=== PATIENT | female | born 1960 | race African-American/Black ===

== ENCOUNTER → 2017-01-07 | Outpatient (CLI) | payer OTHER | LOC: WI 11:05 | PROVIDERS: ATTEND Internal Medicine | DX: Z12.31 Encounter for screening mammogram for malignant neoplasm of breast (principal) | CPT/HCPCS: 77067; G0202 ==

== ENCOUNTER → 2017-05-07 | Outpatient (CLI) | payer OTHER ==
--- NOTE | 2017-05-07 16:08 | RADIOLOGY REPORT (SQ) ---
EXAM DESCRIPTION: U/S RETROPERITON (RENAL/AORTA) COMPLETED DATE/TIME: 05/07/2017 3:26 pm REASON FOR STUDY: CYSTIC KIDNEY DISEASE, UNSPECIFIED R10.11 RIGHT UPPER QUADRANT PAIN Q61.9 CYSTIC KIDNEY DISEASE, UNSPECIFIED COMPARISON: CT abdomen pelvis 01/31/2016 Bilateral renal ultrasound 09/11/2016 TECHNIQUE: Dynamic and static grayscale images acquired of the kidneys and bladder and recorded on P ACS. Additional selected color Doppler and spectral images recorded. LIMITATIONS: Obese patient, limited visualization FINDINGS: RIGHT KIDNEY: Right kidney is 12.3 cm in length. The upper pole 2.5 cm cyst identified on CT 01/31/2016 is difficult to visualize today, due to bowel gas and body habitus. No gross hydronephr osis. Normal cortical thickness. LEFT KIDNEY: Left kidney is 12.2 cm in length. No gross hydronephrosis. Normal cortical thickness. BLADDER: Unremarkable OTHER FINDINGS: No other significant finding. IMPRESSION: Very limited study due to patient body habitus. Right upper pole renal cortical cyst se en on CT exam 01/31/2016 is not identified. No right or left hydronephrosis. Normal cortical thickness. TECHNICAL DOCUMENTATION: JOB ID: [id number] [employer] All Rights Reserved
--- NOTE | 2017-05-07 16:19 | RADIOLOGY REPORT (SQ) ---
EXAM DESCRIPTION: U/S ABDOMEN LIMITED W/O DOP COMPLETED DATE/TIME: 05/07/2017 3:26 pm REASON FOR STUDY: RUQ PAIN R10.11 RIGHT UPPER QUADRANT PAIN Q61.9 CYSTIC KIDNEY DISEASE, UNSPECIFI ED COMPARISON: CT abdomen pelvis 01/31/2016 TECHNIQUE: Dynamic and static grayscale images acquired of the abdomen and recorded on PACS. Additio nal selected color Doppler and spectral images recorded. LIMITATIONS: Obese patient FINDINGS: PANCREAS: Midline pancreas unremarkable LIVER: Echogenic liver from diffuse fatty infiltration LIVER VASCULATURE: Normal directional flow of the main portal vein and hepatic veins. GALLBLADDER: No stones. Normal wall thickness. No pericholecystic fluid. ULTRASOUND-DETECTED DAVILA'S SIGN: Negative. INTRAHEPATIC DUCTS AND COMMON DUCT: CBD and intrahepatic ducts normal caliber. No filling defects. INFERIOR VENA CAVA: Not well seen AORTA: Not well seen RIGHT KIDNEY: No hydronephrosis. 13 cm in length. PERITONEAL AND RIGHT PLEURAL SPACE: No ascites or effusions. OTHER: No other significant findings. IMPRESSION: Very limited study. No gallstones, gallbladder wall thickening or pericholecystic fluid . Fatty liver TECHNICAL DOCUMENTATION: JOB ID: [id number] [employer]- All Rights Reserved
== END ==
LOC: RAD 14:08
PROVIDERS: ATTEND Internal Medicine
DX: Q61.9 Cystic kidney disease, unspecified (principal)
CPT/HCPCS: 76705; 76770

== ENCOUNTER → 2017-05-07 | Outpatient (CLI) | payer OTHER ==
--- NOTE | 2017-05-07 11:19 | RADIOLOGY REPORT (SQ) ---
EXAM DESCRIPTION: HIP RIGHT AP/LATERAL COMPLETED DATE/TIME: 05/07/2017 10:53 am REASON FOR STUDY: PAIN IN RIGHT HIP M25.551 PAIN IN RIGHT HIP COMPARISON: CT abdomen pelvis 01/31/2016 NUMBER OF VIEWS: Two views. TECHNIQUE: AP pelvis and additional frog-leg view of the right hip. LIMITATIONS: None. FINDINGS: MINERALIZATION: Normal. RIGHT HIP: No fracture or dislocation. No worrisome bone lesions. LEFT HIP: No fracture or dislocation. No worrisome bone lesions. PUBIS AND ISCHIUM: No fracture. PELVIS: No fracture. SACRUM: No fracture or dislocation. No worrisome bone lesions. LOWER LUMBAR SPINE: No fracture or dislocation. No worrisome bone lesions. No significant disc disea se. SOFT TISSUES: Surgical clips right lower quadrant. OTHER: No other significant finding. IMPRESSION: NEGATIVE STUDY OF THE RIGHT HIP. NO RADIOGRAPHIC EVIDENCE OF ACUTE INJURY. TECHNICAL DOCUMENTATION: JOB ID: [id number] [employer]- All Rights Reserved
== END ==
LOC: OD 10:06
PROVIDERS: ATTEND Internal Medicine
DX: M25.551 Pain in right hip (principal)

== ENCOUNTER → 2017-10-23 | Outpatient (CLI) | payer OTHER ==
--- NOTE | 2017-10-23 16:57 | RADIOLOGY REPORT (SQ) ---
EXAM DESCRIPTION: ARTERIAL LOWER EXTREM UNILAT COMPLETED DATE/TIME: 10/23/2017 3:59 pm REASON FOR STUDY: LLE PAIN M79.605 PAIN IN LEFT LEG COMPARISON: None. TECHNIQUE: Dynamic and static adrian scale and color images acquired of the left lower extremity arter ies. Additional selected spectral images recorded. ABIs recorded. LIMITATIONS: None. FINDINGS: RIGHT LEG: ABIS: Normal, over 1.0. Triphasic dorsalis pedis artery on spectral waveforms LEFT LEG: ABIS: Normal, over 1.0. INFLOW ARTERIES: Normal, no obstruction evident. FEMORAL ARTERIES:Multiphasic waveforms. Normal, no velocity elevation to suggest focal stenosis. Norm al color Doppler evaluation. No aneurysm. POPLITEAL ARTERY:Multiphasic waveforms. Normal, no velocity elevation to suggest focal stenosis. Norm al color Doppler evaluation. No aneurysm. PATENT TIBIOPERONEAL TRUNK AND 3 VESSEL RUNOFF: Yes, normal vessels. TBI: Not performed. OTHER: No other significant finding. IMPRESSION: NORMAL LEFT LOWER EXTREMITY ARTERIAL DOPPLER WITH ABIs. COMMENT: [facility] NORMAL: Greater than 1.0 MINIMAL DISEASE: 0.9 to 1.0 CLAUDICATION: 0.5 to 0.9 SEVERE ARTERIAL DISEASE: Less than 0.5 [facility] NORMAL: Greater than 1.0 (1.2 If Heavy Calcifications) NORMAL TO MILD ISCHEMIA: 0.8 to 1.0 MODERATE ISCHEMIA: 0.4 to 0.8 SEVERE ISCHEMIA: Less than 0.4 TECHNICAL DOCUMENTATION: JOB ID: [id number] [employer]- All Rights Reserved
== END ==
LOC: SP 15:02
PROVIDERS: ATTEND Internal Medicine
DX: M79.605 Pain in left leg (principal)
CPT/HCPCS: 93926

== ENCOUNTER → 2018-01-08 | Outpatient (CLI) | payer OTHER ==
--- NOTE | 2018-01-08 15:33 | WOMENS IMAGING REPORT ---
EXAM DESCRIPTION: BILAT SCREENING MAMMO W/CAD COMPLETED DATE/TIME: 01/08/2018 9:27 am REASON FOR STUDY: SCREENING MAMMO Z12.31 ENCNTR SCREEN MAMMOGRAM FOR MALIGNANT NEOPLASM OF CLAIR COMPARISON: 2013 to 2016 TECHNIQUE: Standard craniocaudal and mediolateral oblique views of each breast recorded using digita l acquisition. LIMITATIONS: None. FINDINGS: Findings present which are benign by mammographic criteria. No suspicious masses, calcifi cations or architectural distortion. Pertinent benign findings: Calcifications. Read with the assistance of CAD. .[facility] - R2 Cenova Version 1.3 .[facility] Imaging - R2 Cenova Version 1.3 .[facility] Imaging - R2 Cenova Version 2.4 .[facility] [place] [place] - R2 Cenova Version 2.4 .[facility] - R2 Transformation Consultant Version 9.2 Benign mammographic findings may include one or more of the following: Smooth masses, popcorn/rim/co arse calcifications, asymmetries, post-procedure changes, and lesions with long-standing stability. IMPRESSION: BENIGN MAMMOGRAPHIC FINDINGS. BIRADS 2 BREAST DENSITY: b. There are scattered areas of fibroglandular density. BIRAD: 2 BENIGN FINDING(S) RECOMMENDATION: ROUTINE SCREENING COMMENT: The patient has been notified of the results by letter per SA requirements. Additional no tification policies are in place for contacting patient with suspicious or incomplete findings. Quality ID #225: The [employer] recommends an annual screening mammogram for women aged 40 years or over. This facility utilizes a reminder system to ensure that all patients receive reminder letters, and/or direct phone calls for appointments. This includes reminders for routine scr eening mammograms, diagnostic mammograms, or other Breast Imaging Interventions when appropriate. Th is patient will be placed in the appropriate reminder system. The [employer] (ACR) has developed recommendations for screening MRI of the breast s in certain patient populations, to be used in conjunction with mammography. Breast MRI surveillanc e may be appropriate for women with more than 20% lifetime risk of developing breast cancer as deter mined by genetic testing, significant family history of the disease, or history of mantle radiation f or Hodgkins Disease. ACR Practice Guidelines 2008. TECHNICAL DOCUMENTATION: FINDING NUMBER: (1) ASSESSMENT: (1) JOB ID: [id number] [employer]- All Rights Reserved Reading location - IP/workstation name: [email or web address]
== END ==
LOC: WI 09:04
PROVIDERS: ATTEND Internal Medicine
DX: Z12.31 Encounter for screening mammogram for malignant neoplasm of breast (principal)
CPT/HCPCS: 77067

== ENCOUNTER → 2018-01-16 | Outpatient (CLI) | payer OTHER ==
[2018-01-16 18:42] LABS: ABSOLUTE BASOPHILS # (AUTO) 0.1 10^3/uL (0.0-0.2); ABSOLUTE EOSINOPHILS # (AUTO) 0.3 10^3/uL (0.0-0.6); ABSOLUTE LYMPHOCYTES (AUTO) 3.8 10^3/uL (0.5-4.7); ABSOLUTE NEUT (AUTO) 6.8 10^3/uL (1.7-8.2); BASOPHILS % (AUTO) 0.5 % (0-2); EOSINOPHILS % (AUTO) 2.3 % (0-6); HEMATOCRIT 42.8 % (36.0-47.0); HEMOGLOBIN 13.6 g/dL (12.0-15.5); LYMPHOCYTES % (AUTO) 31.4 % (13-45); MEAN CORPUSCULAR HEMOGLOBIN 22.6 pg (27.0-33.4); MEAN CORPUSCULAR HGB CONC 31.9 g/dL (32.0-36.0); MEAN CORPUSCULAR VOLUME 71 fl (80-97); MONOCYTES % (AUTO) 8.7 % (3-13); PLATELET COUNT 289 10^3/uL (150-450); RED BLOOD COUNT 6.05 10^6/uL (3.72-5.28); RED CELL DISTRIBUTION WIDTH 16.4 % (11.5-14.0); SEGMENTED NEUTROPHILS % (AUTO) 57.1 % (42-78); TOTAL CELLS COUNTED % (AUTO) 100 %
--- NOTE | 2018-01-16 18:42 | RADIOLOGY REPORT (SQ) ---
EXAM DESCRIPTION: CHEST 2 VIEWS COMPLETED DATE/TIME: 01/16/2018 6:08 pm REASON FOR STUDY: Encounter for preprocedural examinations,Morbid (severe) obesity due to exc COMPARISON: 11/02/2010 EXAM PARAMETERS: NUMBER OF VIEWS: two views TECHNIQUE: Digital Frontal and Lateral radiographic views of the chest acquired. RADIATION DOSE: NA LIMITATIONS: none FINDINGS: LUNGS AND PLEURA: No opacities, masses or pneumothorax. No pleural effusion. MEDIASTINUM AND HILAR STRUCTURES: No masses or contour abnormalities. HEART AND VASCULAR STRUCTURES: Heart normal size. No evidence for failure. BONES: No acute findings. HARDWARE: None in the chest. OTHER: No other significant finding. IMPRESSION: NO ACUTE RADIOGRAPHIC FINDING IN THE CHEST. TECHNICAL DOCUMENTATION: JOB ID: [id number] [employer]- All Rights Reserved Reading location - IP/workstation name: [email or web address]
[2018-01-16 19:15] LABS: ALANINE AMINOTRANSFERASE 35 U/L (9-52); ALBUMIN 4.3 g/dL (3.5-5.0); ALKALINE PHOSPHATASE 95 U/L (38-126); ANION GAP 14 (5-19); ASPARTATE AMINO TRANSFERASE 17 U/L (14-36); BILIRUBIN,DIRECT 0.4 mg/dL (0.0-0.4); BILIRUBIN,TOTAL 0.7 mg/dL (0.2-1.3); BLOOD UREA NITROGEN 15 mg/dL (7-20); CALCIUM 10.8 mg/dL (8.4-10.2); CARBON DIOXIDE 29 mmol/L (22-30); CHLORIDE 101 mmol/L (98-107); GLUCOSE 108 mg/dL (75-110); SODIUM 144.1 mmol/L (137-145); TOTAL PROTEIN 7.8 g/dL (6.3-8.2)
--- NOTE | 2018-01-16 22:56 | EKG REPORT ---
SEVERITY:- ABNORMAL ECG - SINUS RHYTHM PROBABLE INFERIOR INFARCT, AGE INDETERMINATE CONSIDER ANTERIOR INFARCT : Confirmed by: Sonal Baum 16-Jan-2018 22:55:18
== END ==
LOC: OD 17:22
PROVIDERS: ATTEND Surgery
DX: Z01.810 Encounter for preprocedural cardiovascular examination (principal); Z01.811 Encounter for preprocedural respiratory examination; Z01.812 Encounter for preprocedural laboratory examination; Z01.818 Encounter for other preprocedural examination; E66.01 Morbid (severe) obesity due to excess calories
CPT/HCPCS: 36415; 71046; 80053; 84443; 85025; 93005; 93010

== ENCOUNTER → 2018-02-19 | Outpatient (CLI) | payer OTHER ==
--- NOTE | 2018-02-19 12:13 | RADIOLOGY REPORT (SQ) ---
EXAM DESCRIPTION: U/S RETROPERITON (RENAL/AORTA) COMPLETED DATE/TIME: 02/19/2018 11:47 am REASON FOR STUDY: CYST ON KIDNEY, ACQUIRED N28.1 CYST OF KIDNEY, ACQUIRED COMPARISON: CT abdomen pelvis 01/31/2016 Abdominal ultrasound 09/01/2016, 05/07/2017 TECHNIQUE: Dynamic and static grayscale images acquired of the kidneys and bladder and recorded on P ACS. Additional selected color Doppler and spectral images recorded. LIMITATIONS: Morbid obesity FINDINGS: RIGHT KIDNEY: Normal size, 12 cm in length. Grossly normal cortical thickness. No hydron ephrosis. LEFT KIDNEY: Normal size, 11.6 cm in length. Grossly normal cortical thickness. No hydronephrosis. BLADDER: No masses. OTHER FINDINGS: No other significant finding. IMPRESSION: No hydronephrosis. Limited study due to patient body habitus. TECHNICAL DOCUMENTATION: JOB ID: [id number] [employer]- All Rights Reserved Reading location - IP/workstation name: [email or web address]
== END ==
LOC: RAD 11:01
PROVIDERS: ATTEND Internal Medicine
DX: N28.1 Cyst of kidney, acquired (principal)
CPT/HCPCS: 76770

== ENCOUNTER → 2018-04-01 | Outpatient (CLI) | payer OTHER ==
[~2018-04-01] MED LIST: REGADENOSON INJ 0.4 MG/5 ML DISP.SYRIN IV ONE
--- NOTE | 2018-04-01 21:40 | RADIOLOGY REPORT ---
STRESS TEST REPORT [id number] ROOM#: DATE OF SERVICE: 04/01/2018 AGE: 57Y ORDER#: [id number] REFERRING MD: TOYA AMEZCUA M.D. INDICATION: Preoperative sleeve surgery cardiac clearance workup. PROCEDURE PERFORMED: REST/STRESS SINGLE ISOTOPE CARDIOLITE SPECT IMAGING WITH IV LEXISCAN STRESS AND GATED SPECT IMAGING CLINICAL HISTORY: This 57-year-old female with no known coronary artery disease but has cardiac risk factors of obesity, hypertension, diabetes, was found to have an abnormal EKG on preop workup, never had any chest pain. REPORT: The patient received IV Lexiscan 0.4 mg infused over 10 seconds. The resting heart rate was 91 BPM and increased to 103 BPM at the end of infusion. The resting blood pressure was 146/95 and increased to 175/85 at the end of infusion. The patient had symptoms of feeling rushed in her chest, but no specific chest pains. The resting 12-lead EKG showed sinus rhythm at 93 BPM, old anterior DC, rule out poor precordial lead placement. At the end of infusion, sinus tachycardia was seen, there were no ST changes seen. Myocardial perfusion imaging was performed at rest 60 minutes following injection of 16.08 mCi of Cardiolite. There was significant breast attenuation, unable to improve images. Ten seconds after IV Lexiscan injection, the patient was injected with 46 mCi of Cardiolite and flushed. Gated post stress tomographic imaging was performed 60 minutes after stress. FINDINGS: The overall quality of the study is poor. There was severe breast attenuation obscuring the better half of the left ventricle on all views, despite attenuation correction software used, minimal improvement. The left ventricular cavity is noted to be normal in size in both the rest and stress studies. There is no evidence of abnormal transient ischemic dilatation of left ventricle. The TID ratio was 1.11. The SPECT images showed a small area of moderate severity reversible ischemia in the apex and in the apical inferior wall. There was no fixed perfusion defect. The gated study showed normal motion contraction in the apex and apical inferior wall. The left ventricular ejection fraction was calculated to be 55%. IMPRESSION: Myocardial perfusion imaging is abnormal. There is a small area of moderate severity reversible ischemia in the apex and apical inferior wall. Overall left ventricular systolic function was normal at 55% and no motion contraction abnormalities were seen in the apex and in the apical inferior wall, this is consistent with ischemia in a distal LAD distribution. No prior test for comparison. INTERPRETING PHYSICIAN: JEFE OROZCO M.D. /: [id number] TT: 2103 ID: [id number] /: [id number] TD: [id number] JOB: [id number] cc:Good GRIMALDO M.D. > [facility]
== END ==
LOC: RAD 06:18
PROVIDERS: ATTEND Internal Medicine
DX: R94.31 Abnormal electrocardiogram [ECG] [EKG] (principal)
CPT/HCPCS: 93017; 78452; A9500; J2785; Q9969

== ENCOUNTER 2018-04-30 09:56 | Day surgery (SDC) | payer OTHER ==
[~2018-04-30 09:56] MED LIST changes: +ASPIRIN 325 MG TABLET PO PRN; +DIAZEPAM 5 MG TABLET PO PRN; +DIPHENHYDRAMINE HCL 25 MG CAPSULE PO PRN; +NORMAL SALINE 1000 ML 1,000 ML IV PRN; -REGADENOSON INJ 0.4 MG/5 ML DISP.SYRIN IV ONE; +VERAPAMIL HCL 5 MG, LIDOCAINE HCL/PF 4 ML, NORMAL SALINE 12 ML, NITROGLYCERIN/D5W 0.4 M... IV PRN
[2018-04-30] MEDS ORDERED: HEPARIN SODIUM,PORCINE/NS/PF 2,000 UNIT/1,000 ML RTUINJ IV ONE (11:27)
[2018-04-30] MEDS ORDERED: LIDOCAINE 1% INJ-PF (10 MG/ML) 30 ML SDV ONE (11:27)
[2018-04-30] MEDS ORDERED: DIAZEPAM 5 MG TABLET ONE (11:38)
[2018-04-30] MEDS ORDERED: ASPIRIN 325 MG TABLET ONE (11:38)
[2018-04-30] MEDS ORDERED: DIPHENHYDRAMINE HCL 25 MG CAPSULE ONE (11:38)
[2018-04-30] MEDS ORDERED: FENTANYL CITRATE INJ/PF 100 MCG/2 ML AMPUL ONE ×2 (12:12→13:07)
[2018-04-30] MEDS ORDERED: HEPARIN SOD (PORCINE) 5,000 UNIT/ML 1 ML SYRINGE ONE (12:12)
[2018-04-30] MEDS ORDERED: MIDAZOLAM 2 MG/2 ML INJ ONE ×2 (12:12→13:07)
--- NOTE | 2018-04-30 14:31 | Operative Report ---
Operative Report DATE OF SURGERY: 04/30/18 PREOPERATIVE DIAGNOSIS: Abnormal stress test POSTOPERATIVE DIAGNOSIS: Nonobstructive coronary artery disease OPERATION: Left heart catheterization with selective coronary arteriography. SURGEON: CELESTINA ARREOLA ANESTHESIA: Moderate Sedation TISSUE REMOVED OR ALTERED: Not applicable COMPLICATIONS: No apparent complications ESTIMATED BLOOD LOSS: Minimal INTRAOPERATIVE FINDINGS: Nonobstructive coronary artery disease and no aortic stenosis PROCEDURE: Procedure: 57-year-old female with multiple cardiovascular risk factors seen as an outpatient for preoperative evaluation prior to bariatric surgery. A stress test was performed which showed evidence of apical ischemia. She is referred for diagnostic coronary arteriography. Procedures performed: 1. Left heart catheterization. 2. Selective coronary arteriography. 3. Left ventriculography. Wind Commissioning Technician: Celestina Arreola DO Contrast utilized: 80 mL of Optiray 320 Procedure in brief: After informed consent was obtained, the patient was brought to the catheterization lab in stable condition. Bilateral groins and the right wrist were prepped and draped in sterile fashion. The patient was given IV moderate conscious sedation by the cardiac catheterization lab nurse with Versed and fentanyl which was supervised by the procurement director. The following parameters were monitored: Oxygen saturation, heart rate, blood pressure, and response to care. Total physician intra- service time was 36 minutes. After local infiltration of the right wrist with 2% lidocaine, the right radial artery was punctured with a micropuncture needle and a 6 [employer] hydrophilic sheath was inserted into the right radial artery using modified cylinder technique and a micropuncture kit. The sheath was then flushed with a spasmolytic cocktail of nitroglycerin, verapamil, and lidocaine. The patient was given 5000 units of IV heparin. Next, we attempted to cannulate the left brachial artery with a J-wire, but felt significant resistance. Angiography through the right radial artery sheath was performed in the AP projection which showed no evidence of any vessel loop. There is normal bifurcation of the right ulnar and radial arteries at the level of the antecubital fossa. We utilized a Glidewire to help advance the Muddy catheter to the right innominate artery. This was exchanged for the 0.035 inch J-wire to advance the catheter to the aortic root. Left heart catheterization was performed using a 6 [place] tiger diagnostic catheter across the aortic valve in a retrograde fashion. Left ventricular pressure was measured and the catheter was positioned retrograde through the aortic valve and pressure measured in the aortic root. Next, selective coronary arteriography was performed using a 6 [place] tiger catheter is seen in the ostium the right coronary artery. Multiple injections were performed in orthogonal views and the catheter was then positioned into the ostium the left main coronary artery. Multiple injections were performed in orthogonal views of the catheter was removed from the body without difficulty. Findings: Left heart hemodynamics LV 123/4, LVEDP 14 Ao 122/74, mean arterial pressure of 96 mmHg. Coronary arteriography Left main coronary artery: Left main coronary artery is angiographically normal giving rise to the LAD and left circumflex arteries. Left anterior descending artery: The left anterior descending artery courses of the anterior interventricular septum and terminates across the cardiac apex. The proximal LAD has minimal irregularity. The mid left anterior descending artery has a 50% calcific stenosis at the bifurcation of the first diagonal branch artery. The remainder of the left anterior descending artery has minimal irregularity as it approaches the cardiac apex. The first diagonal branch artery is of small caliber and approximately 2 mm in diameter. There is a 30-40% proximal stenosis. Left circumflex artery: The left circumflex artery is a large caliber artery. It has a high takeoff first obtuse marginal branch artery. The circumflex and the obtuse marginal branch artery [place] minimal regularity Right coronary artery: The right coronary artery is the dominant vessel giving rise to the right posterior descending artery. These vessels have minimal regularity. Left ventriculography: Deferred. Patient had a noninvasive assessment of ejection fraction as an outpatient. Right radial artery sheath was removed and hemostasis achieved with the TR band. The patient tolerated the procedure well and there were no apparent complications at the end of the case. Impression: 1. Normal left main coronary artery. 2. 50% mid LAD stenosis. 3. 30-40% proximal first diagonal branch artery stenosis. 4. Minimal irregularity of the left circumflex/obtuse marginal branch artery system. 5. Minimal irregularity of the right coronary artery. 6. No evidence of aortic stenosis. Plan: 1. Continue optimal medical therapy. We will add isosorbide mononitrate to her regimen. 2. If the patient fails outpatient medical therapy, she may be scheduled for fractional flow reserve testing of the LAD to verify the findings on stress test prior to stent implantation. 3. Follow-up with Dr. Dobbins as an outpatient. I appreciate the opportunity to help participate in this patient's cardiovascular care. If you should have any questions for me regarding this patient's cardiac catheterization, please do not hesitate to contact me at the [facility].
--- NOTE | 2018-04-30 14:33 | Discharge Summary ---
Discharge Summary (SDC) - Discharge Final Diagnosis: 1. Nonobstructive coronary artery disease. 2. No evidence of aortic stenosis. Date of Surgery: 04/30/18 Discharge Date: 04/30/18 Condition: Good Referrals: TOYA AMEZCUA MD [Primary Care Provider] - Discharge Diet: Cardiac, Diabetic Discharge Activity: No Driving, No Lifting Over 10 Pounds, No Lifting/Push/ Pulling, No tub bath Home Care Assistance: Provided by Family Report the Following to Your Physician Immediately: Shortness of Breath, Nausea , Increase in Pain, Fever over 101 Degrees, Unusual Bleeding, Redness, Swelling , Warmth
[2018-04-30 16:09] VITALS: BP 136/87
== END 2018-04-30 16:33 | disposition home or self-care (01) ==
LOC: CCL 09:56
PROVIDERS: ATTEND Internal Medicine Cardiovascular Disease
DX: I25.10 Atherosclerotic heart disease of native coronary artery without angina pectoris (principal); I10 Essential (primary) hypertension; R06.00 Dyspnea, unspecified; I99.8 Other disorder of circulatory system; Z79.899 Other long term (current) drug therapy; Z79.4 Long term (current) use of insulin
CPT/HCPCS: 82962; 93458; 76937; J2250; J1644 ×2; J3010; J3490 ×5

== ENCOUNTER → 2018-10-28 | Outpatient (CLI) | payer OTHER ==
--- NOTE | 2018-10-28 12:27 | RADIOLOGY REPORT (SQ) ---
EXAM DESCRIPTION: U/S RETROPERITON (RENAL/AORTA) COMPLETED DATE/TIME: 10/28/2018 10:09 am REASON FOR STUDY: CYST ON KIDNEY N28.1 CYST OF KIDNEY, ACQUIRED COMPARISON: 02/19/2018 TECHNIQUE: Dynamic and static grayscale images acquired of the kidneys and bladder and recorded on P ACS. Additional selected color Doppler and spectral images recorded. LIMITATIONS: None. FINDINGS: RIGHT KIDNEY: Normal size measuring 12.2 cm. Normal echogenicity. No solid or suspicious m asses. There is a 2.9 cm upper pole cyst, similar in size to CT dated 01/31/2016. No hydronephrosis. No calcifications. LEFT KIDNEY: Normal size measuring 12.1 cm. Normal echogenicity. No solid or suspicious masses. No h ydronephrosis. No calcifications. BLADDER: No masses. OTHER FINDINGS: No other significant finding. IMPRESSION: Limited exam secondary to body habitus. No hydronephrosis. 2.9 cm upper pole right renal cyst. TECHNICAL DOCUMENTATION: JOB ID: [id number] [employer]- All Rights Reserved Reading location - IP/workstation name: [email or web address]
== END ==
LOC: RAD 09:21
PROVIDERS: ATTEND Internal Medicine
DX: N28.1 Cyst of kidney, acquired (principal)
CPT/HCPCS: 76770

== ENCOUNTER → 2019-01-12 | Outpatient (CLI) | payer OTHER ==
--- NOTE | 2019-01-12 16:33 | WOMENS IMAGING REPORT ---
EXAM DESCRIPTION: 3D SCREENING MAMMO BILAT COMPLETED DATE/TIME: 01/12/2019 8:57 am REASON FOR STUDY: ROUTINE BILATERAL SCREENING;Z12.31 Z12.31 ENCNTR SCREEN MAMMOGRAM FOR MALIGNANT N EOPLASM OF CLAIR COMPARISON: 01/08/2018 and 01/07/2017. TECHNIQUE: Standard craniocaudal and mediolateral oblique views of each breast recorded using digita l acquisition and breast tomosynthesis. LIMITATIONS: None. FINDINGS: Findings present which are benign by mammographic criteria. No suspicious masses, calcific ations or architectural distortion. Pertinent benign findings: Calcifications in both breasts appear unchanged. Read with the assistance of CAD. .[facility] - R2 Cenova Version 1.3 .[facility] Imaging - R2 Cenova Version 2.1 .[facility] Imaging - R2 Cenova Version 2.4 .[facility] - R2 Cenova Version 2.4 .[facility] - R2 [employer]er Version 9.2 Benign mammographic findings may include one or more of the following: Smooth masses, popcorn/rim/coa rse calcifications, asymmetries, post-procedure changes, and lesions with long-standing stability. IMPRESSION: BENIGN MAMMOGRAPHIC FINDINGS. BIRADS 2 BREAST DENSITY: a. The breasts are almost entirely fatty. BIRAD: 2 BENIGN FINDING(S) RECOMMENDATION: ROUTINE SCREENING COMMENT: The patient has been notified of the results by letter per SA requirements. Additional no tification policies are in place for contacting patient with suspicious or incomplete findings. Quality ID #225: The [employer] recommends an annual screening mammogram for women aged 40 years or over. This facility utilizes a reminder system to ensure that all patients receive reminder letters, and/or direct phone calls for appointments. This includes reminders for routine scr eening mammograms, diagnostic mammograms, or other Breast Imaging Interventions when appropriate. Th is patient will be placed in the appropriate reminder system. The [employer] (ACR) has developed recommendations for screening MRI of the breast s in certain patient populations, to be used in conjunction with mammography. Breast MRI surveillanc e may be appropriate for women with more than 20% lifetime risk of developing breast cancer as deter mined by genetic testing, significant family history of the disease, or history of mantle radiation f or Hodgkins Disease. ACR Practice Guidelines 2008. DBT Technology DBT is a type of tomographic mammography. With conventional mammography, overlapping breast tissue ma y make lesions difficult to detect, even with good compression. DBT uses an x-ray tube that rotates a round the breast, taking images at different angles. These images are then combined to create thin sl ices of the breast that the radiologist can view as a 3D reconstruction. The Slanissue unit can perform full-field digital mammograms (2D imaging); or DBT (3D imaging); or both, in a combination mode that quickly performs both the mammogram and the tomosynthesis scan while the breast is still compressed. PQRS 6045F: Fluoroscopic imaging is not utilized for breast tomosynthesis. TECHNICAL DOCUMENTATION: FINDING NUMBER: (1) ASSESSMENT: (1) JOB ID: [id number] [employer]- All Rights Reserved Reading location - IP/workstation name: [email or web address]
== END ==
LOC: WI 08:21
PROVIDERS: ATTEND Internal Medicine
DX: Z12.31 Encounter for screening mammogram for malignant neoplasm of breast (principal)
CPT/HCPCS: 77063; 77067

== ENCOUNTER → 2019-02-10 | Outpatient (CLI) | payer OTHER ==
--- NOTE | 2019-02-10 12:42 | RADIOLOGY REPORT (SQ) ---
EXAM DESCRIPTION: CTA CHEST COMPLETED DATE/TIME: 02/10/2019 10:54 am REASON FOR STUDY: PLEURISY (R09.1) R09.1 PLEURISY COMPARISON: CT chest 01/03/2015 Chest films 01/16/2018 TECHNIQUE: CT scan of the chest performed using helical scanning technique with dynamic intravenous contrast injection. Images reviewed with lung, soft tissue and bone windows. Reconstructed coronal and sagittal MPR images reviewed. Additional 3 dimensional post-processing performed to develop Maximal Intensity Projection images ([place] P). All images stored on PACS. All CT scanners at this facility use dose modulation, iterative reconstruction, and/or weight based d osing when appropriate to reduce radiation dose to as low as reasonably achievable (ALARA). [facility]: Dose Right [facility]: CareDose [facility]: Dose Right [facility]: Teradose 4D [facility]: Mevvy CONTRAST TYPE AND DOSE: contrast/concentration: Isovue 350.00 mg/ml; Total Contrast Delivered: 79.0 ml; Total Saline Delivered: 67.0 ml Contrast bolus optimized for the pulmonary arteries and thoracic aorta. RENAL FUNCTION: Creatinine 0.6 RADIATION DOSE: CT Rad equipment meets quality standard of care and radiation dose reduction techniq ues were employed. CTDIvol: 9.4 - 15.3 mGy. DLP: 545 mGy-cm. . LIMITATIONS: None. FINDINGS: LUNGS AND PLEURA: No masses, infiltrates, or pneumothorax. No pleural effusions or pleura l calcifications. AORTA AND GREAT VESSELS: No thoracic aortic aneurysm or dissection HEART: No pericardial effusion. No significant coronary artery calcifications. PULMONARY ARTERIES: No emboli visualized in the main pulmonary arteries or the segmental branches. HILAR AND MEDIASTINAL STRUCTURES: No identified masses or abnormal nodes. Small hiatal hernia HARDWARE: None in the chest. UPPER ABDOMEN: Incompletely imaged benign fatty nodule left adrenal gland similar compared to 2018 THYROID AND OTHER SOFT TISSUES: No masses. No adenopathy. BONES: No acute or significant finding. 3D MIPS: Confirm above findings. OTHER: No other significant finding. IMPRESSION: No CT angio evidence of acute pulmonary emboli or thoracic aortic dissection. No acute infiltrates. COMMENT: Quality ID # 436: Final reports with documentation of one or more dose reduction techniques (e.g., Automated exposure control, adjustment of the mA and/or kV according to patient size, use of iterative reconstruction technique) TECHNICAL DOCUMENTATION: JOB ID: [id number] [employer]- All Rights Reserved Reading location - IP/workstation name: [email or web address]
== END ==
LOC: RAD 10:12
PROVIDERS: ATTEND Internal Medicine
DX: R09.1 Pleurisy (principal)
CPT/HCPCS: 71275; 82565

== ENCOUNTER → 2019-12-29 | Outpatient (CLI) | payer OTHER ==
[2019-12-29 10:24] LABS: ANION GAP 7 (5-19); BLOOD UREA NITROGEN 15 mg/dL (7-20); CALCIUM 10.5 mg/dL (8.4-10.2); CARBON DIOXIDE 31 mmol/L (22-30); CHLORIDE 99 mmol/L (98-107); GLUCOSE 210 mg/dL (75-110); POTASSIUM 4.3 mmol/L (3.6-5.0)
== END ==
LOC: OD 09:38
PROVIDERS: ATTEND Family Medicine
DX: E11.41 Type 2 diabetes mellitus with diabetic mononeuropathy (principal)
CPT/HCPCS: 36415; 80048; 83036

== ENCOUNTER → 2020-02-23 | Outpatient (CLI) | payer OTHER ==
--- NOTE | 2020-02-23 09:58 | WOMENS IMAGING REPORT ---
EXAM DESCRIPTION: 3D SCREENING MAMMO BILAT IMAGES COMPLETED DATE/TIME: 02/23/2020 9:29 am REASON FOR STUDY: Z12.31 SCREENING MAMMO Z12.31 ENCNTR SCREEN MAMMOGRAM FOR MALIGNANT NEOPLASM OF B RE COMPARISON: Multiple since 2012 EXAM PARAMETERS: Standard craniocaudal and mediolateral oblique views of each breast recorded using digital acquisition and breast tomosynthesis. Read with the assistance of CAD. .[facility] - [employer] Project Lead Version 9.2 LIMITATIONS: None. FINDINGS: Findings present which are benign by mammographic criteria. No suspicious masses, calcific ations or architectural distortion. Pertinent benign findings: Benign calcifications bilaterally Benign mammographic findings may include one or more of the following: Smooth masses, popcorn/rim/coa rse calcifications, asymmetries, post-procedure changes, and lesions with long-standing stability. IMPRESSION: BENIGN MAMMOGRAPHIC FINDINGS. BIRADS 2 BREAST DENSITY: a. The breasts are almost entirely fatty. BIRAD: ASSESSMENT: 2 BENIGN FINDING(S) RECOMMENDATION: ROUTINE SCREENING COMMENT: The patient has been notified of the results by letter per [place] requirements. Additional no tification policies are in place for contacting patient with suspicious or incomplete findings. Quality ID #225: The [employer] recommends an annual screening mammogram for women aged 40 years or over. This facility utilizes a reminder system to ensure that all patients receive reminder letters, and/or direct phone calls for appointments. This includes reminders for routine scr eening mammograms, diagnostic mammograms, or other Breast Imaging Interventions when appropriate. Th is patient will be placed in the appropriate reminder system. TECHNICAL DOCUMENTATION: FINDING NUMBER: (1) ASSESSMENT: (1) JOB ID: [id number] 2010 [employer]- All Rights Reserved Reading location - IP/workstation name: [email or web address]
== END ==
LOC: WI 08:25
PROVIDERS: ATTEND Family Medicine
DX: Z12.31 Encounter for screening mammogram for malignant neoplasm of breast (principal)
CPT/HCPCS: 77063; 77067